=== PATIENT | male | born 1985 ===

== ENCOUNTER 2022-03-29 16:59 | Emergency (ER) | payer OTHER ==
[2022-03-29 17:13] VITALS: BP 157/90
[2022-03-29] MEDS ORDERED: ONDANSETRON 4 MG ODT TAB PO ONE (17:13)
[2022-03-29] MEDS ORDERED: TETANUS,DIPH,PERTUSS(ACELL) VACCINE 0.5 ML SYRINGE IM ONE (17:13)
[2022-03-29] MEDS ORDERED: oxyCODONE /ACETAMINOPHEN 5-325MG TAB PO ONE (17:13)
[2022-03-29] MEDS ORDERED: IBUPROFEN 600 MG TAB PO ONE (17:13)
[2022-03-29] MEDS ORDERED: NEOMY 3.5 MG/BACIT 400 UNITS/POLY B 5000 UNITS/GM OINT PACKET TP ONE ×2 (17:13→21:13)
[2022-03-29] MEDS ORDERED: LIDOCAINE (1%) 10 MG/1 ML VIAL 20 ML MDV INFILTRATI ONE (17:13)
--- NOTE | 2022-03-29 19:41 | Emergency Department Report ---
ED Upper Extremity Inj HPI - General Chief Complaint: Laceration/Recheck/Suture Stated Complaint: FINGERS ON L HAND CUT WITH ABIOLA Source: patient Mode of arrival: Ambulatory Limitations: No Limitations - History of Present Illness Initial Comments: Patient is a 36-year-old male with no past medical history who presents to the ED with complaint of acute onset persistent painful bleeding left ring and middle finger lacerations after he accidentally cut his left ring and middle fingers when trimming a fence with lashawn about 1 hour ago. Patient states that the bleeding is not well controlled. Patient states that he is not up-to-date with his tetanus vaccination. Patient denies head or neck injuries, dizziness, syncope, nausea and vomiting, fall, numbness and tingling or weakness of left hand, syncope, seizures, chest pain or shortness of breath. MD Complaint: Injury to:: left, finger (Middle and ring finger lacerations) -: Sudden, hour(s) (1) Other Extremity Injury: Fingers: Left (Middle and ring finger lacerations) Other Injuries: none Handedness: right Place: work Severity scale (0 -10): 8 Improves With: none Worsens With: movement of extremity Context: laceration Associated Symptoms: denies other symptoms. denies: weakness, numbness, neck pain, suspects foreign body, nausea/vomiting, heard/felt popping sensat - Related Data Previous Rx's Medication Instructions Recorded Last Taken Type Ibuprofen [Motrin] 800 mg PO Q8HR PRN #30 tablet 03/29/22 Unknown Rx cephALEXin [Keflex] 500 mg PO Q8HR #30 cap 03/29/22 Unknown Rx traMADoL [Ultram] 50 mg PO Q6HR PRN #12 tablet 03/29/22 Unknown Rx Allergies Allergy/AdvReac Type Severity Reaction Status Date / Time No Known Allergies Allergy Verified 03/29/22 17:13 ED Review of Systems ROS: Stated complaint: FINGERS ON L HAND CUT WITH ABIOLA Other details as noted in HPI Constitutional: denies: chills, fever Eyes: denies: eye pain, eye discharge, vision change ENT: denies: ear pain, throat pain Respiratory: denies: cough, shortness of breath, wheezing Cardiovascular: denies: chest pain, palpitations Endocrine: no symptoms reported Gastrointestinal: denies: abdominal pain, nausea, diarrhea Genitourinary: denies: urgency, dysuria Musculoskeletal: arthralgia (Left middle and ring finger lacerations with pain). denies: back pain, joint swelling Skin: other (Left middle and ring finger lacerations). denies: rash, lesions Neurological: denies: headache, weakness, paresthesias Psychiatric: denies: anxiety, depression Hematological/Lymphatic: denies: easy bleeding, easy bruising ED Past Medical Hx - Social History Smoking Status: Never Smoker Substance Use Type: Alcohol - Medications Home Medications: Home Medications Medication Instructions Recorded Confirmed Last Taken Type Ibuprofen [Motrin] 800 mg PO Q8HR PRN #30 tablet 03/29/22 Unknown Rx cephALEXin [Keflex] 500 mg PO Q8HR #30 cap 03/29/22 Unknown Rx traMADoL [Ultram] 50 mg PO Q6HR PRN #12 tablet 03/29/22 Unknown Rx ED Physical Exam - General Limitations: No Limitations General appearance: alert, in no apparent distress - Head Head exam: Present: atraumatic, normocephalic, normal inspection - Eye Eye exam: Present: normal appearance, PERRL, EOMI Pupils: Present: normal accommodation - ENT ENT exam: Present: normal exam, normal orophraynx, mucous membranes moist, TM's normal bilaterally, normal external ear exam - Neck Neck exam: Present: normal inspection, full ROM. Absent: tenderness - Respiratory Respiratory exam: Present: normal lung sounds bilaterally. Absent: respiratory distress, wheezes, rales, rhonchi, chest wall tenderness, accessory muscle use, decreased breath sounds, prolonged expiratory - Cardiovascular Cardiovascular Exam: Present: regular rate, normal rhythm, normal heart sounds. Absent: systolic murmur, diastolic murmur, rubs, gallop - GI/Abdominal GI/Abdominal exam: Present: soft, normal bowel sounds. Absent: tenderness, guarding, rebound, hyperactive bowel sounds, hypoactive bowel sounds, organomegaly, mass - Extremities Exam Extremities exam: Present: normal inspection, full ROM, tenderness (Palpable left ring and middle finger lacerations due to extensive laceration wounds), normal capillary refill. Absent: pedal edema, joint swelling, calf tenderness - Back Exam Back exam: Present: normal inspection, full ROM. Absent: tenderness, CVA tenderness (L), muscle spasm, paraspinal tenderness, vertebral tenderness - Neurological Exam Neurological exam: Present: alert, oriented X3, CN II-XII intact, normal gait, reflexes normal - Psychiatric Psychiatric exam: Present: normal affect, normal mood - Skin Skin exam: Present: warm, dry, intact, normal color, other (Extensive bleeding 7 cm laceration wound on left middle finger and 5 cm laceration on left ring finger). Absent: rash ED Course Vital Signs 03/29/22 17:11 Temperature 97.1 F L Pulse Rate 76 Respiratory 18 Rate Blood Pressure 157/90 O2 Sat by Pulse 99 Oximetry - Laceration /Wound Repair Left Palm Finger Wound Location: upper extremity (Left middle finger laceration on palmar side) Wound Length (cm): 7 Wound's Depth, Shape: irregular, flap Wound Explored: contaminated Irrigated w/ Saline (ccs): 400 Betadine Prep?: Yes Anesthesia: 1% Lidocaine Volume Anesthetic (ccs): 7 Wound Debrided: extensive Wound Repaired With: sutures Suture Size/Type: 3:0, proline Number of Sutures: 15 Layer Closure?: No Sterile Dressing Applied?: Yes Progress: The wounds were extensively debrided with normal saline and Betadine solution. Lidocaine 1% solution was used as a local anesthetic for digital block. When anesthesia was fully achieved, the wound was sutured per protocol using Prolene 3-0 sutures for a total of 15 sutures. Patient tolerated procedure well. The Neosporin ointment was applied to the sutured wound and the wound was then dressed appropriately. Patient was discharged home on pain medications and antibiotics and advised to follow-up with his primary care physician in 7 to 10 days for evaluation or return to the ED immediately if symptoms get worse. Patient was otherwise advised return to the ED or to his primary care physician in 12 to 14 days for suture removal. Left Finger Wound Location: upper extremity (Left ring finger laceration on palmar side) Wound Length (cm): 5 Wound's Depth, Shape: irregular, flap Wound Explored: contaminated Irrigated w/ Saline (ccs): 400 Betadine Prep?: Yes Anesthesia: 1% Lidocaine Volume Anesthetic (ccs): 7 Wound Debrided: extensive Wound Repaired With: sutures Suture Size/Type: 3:0, proline Number of Sutures: 10 Layer Closure?: No Sterile Dressing Applied?: Yes Progress: The wounds were extensively debrided with normal saline and Betadine solution. Lidocaine 1% solution was used as a local anesthetic for digital block. When anesthesia was fully achieved, the wound was sutured per protocol using Prolene 3-0 sutures for a total of 15 sutures. Patient tolerated procedure well. The Neosporin ointment was applied to the sutured wound and the wound was then dressed appropriately. Patient was discharged home on pain medications and antibiotics and advised to follow-up with his primary care physician in 7 to 10 days for evaluation or return to the ED immediately if symptoms get worse. Patient was otherwise advised return to the ED or to his primary care physician in 12 to 14 days for suture removal. ED Medical Decision Making - Medical Decision Making This is a 36-year-old male with no past medical history who presents to the ED with complaint of acute onset persistent painful bleeding left ring and middle finger lacerations after he accidentally cut his left ring and middle fingers when trimming a fence with lashawn about 1 hour ago. Patient states that the bleeding is not well controlled. Patient states that he is not up-to-date with his tetanus vaccination. In the ED, patient is alert and oriented x3 and is not in any distress. Patient was treated for pain in the ED. The wound in his left middle and ring fingers were extensively debrided and cleaned with normal saline and Betadine solutions. Patient also received booster tetanus vaccination. The laceration wounds on the left middle and ring fingers were sutured per protocol and the patient tolerated the procedure well. The wounds were then dressed appropriately after application of Neosporin ointment and the patient was discharged home on pain medications and antibiotic prophylactically and advised to follow-up with his primary care physician in 7 to 10 days for reevaluation. Patient was otherwise advised return to the ED immediately if symptoms get worse, otherwise follow-up with his primary care physician or return to the ED in 12 to 14 days for suture removal. - Differential Diagnosis finger laceration; puncture wound; hand injury; Critical care attestation.: If time is entered above; I have spent that time in minutes in the direct care of this critically ill patient, excluding procedure time. ED Disposition Clinical Impression: Laceration of left middle finger w/o foreign body w/o damage to nail Qualifiers: Encounter type: initial encounter Qualified Code(s): S61.213A - Laceration without foreign body of left middle finger without damage to nail, initial encounter Laceration of left ring finger w/o foreign body w/o damage to nail Qualifiers: Encounter type: initial encounter Qualified Code(s): S61.215A - Laceration without foreign body of left ring finger without damage to nail, initial encounter Disposition: 01 HOME / SELF CARE / HOMELESS Is pt being admited?: No Does the pt Need Aspirin: No Condition: Stable Instructions: Laceration Care, Adult, [id number], Sutures, [place], or Adhesive Wound Closure, [id number], Sutured Wound Care, [id number] Additional Instructions: Arion los medicamentos con alimentos, marco muchos lquidos, dewey un seguimiento con [place] mdico de atencin primaria en 7 a 10 joseph para velvte reevaluacin. Regrese al servicio de urgencias inmediatamente si los sntomas empeoran. Regrese al servicio de urgencias en 12 a 14 joseph para retirar las suturas. Prescriptions: cephALEXin [Keflex] 500 mg PO Q8HR #30 cap Ibuprofen [Motrin] 800 mg PO Q8HR PRN #30 tablet PRN Reason: Pain , Severe (7-10) traMADoL [Ultram] 50 mg PO Q6HR PRN #12 tablet PRN Reason: Pain Referrals: [facility] [Provider Group] - 7-10 days Time of Disposition: 19:39 Print Language: MACANESE
== END 2022-03-29 21:49 | disposition home or self-care (01) ==
LOC: EDBD 16:59 → ED 16:59
DX: S61.215A Laceration without foreign body of left ring finger without damage to nail, initial encounter (principal); S61.213A Laceration without foreign body of left middle finger without damage to nail, initial encounter; W45.8XXA Other foreign body or object entering through skin, initial encounter; Y93.89 Activity, other specified; Y92.89 Other specified places as the place of occurrence of the external cause; Y99.8 Other external cause status
CPT/HCPCS: 90471; 90715; 99282; J3490; Q0162